=== PATIENT | male | born 1980 | race American Indian/Alaskan Native ===

== ENCOUNTER 2017-07-26 01:52 | Inpatient (IN) | payer SELFPAY ==
--- NOTE | 2017-07-26 05:54 | XRay Report ---
FINAL REPORT EXAM: XR ABDOMEN 2V HISTORY: N/V TECHNIQUE: upright and supine views of the abdomen and pelvis PRIORS: None. FINDINGS: No pneumoperitoneum. Bowel gas pattern is nonobstructive. No pathologic calcification or fracture. IMPRESSION: No acute finding. Consider CT for more sensitive and specific evaluation as warranted.
[2017-07-26 06:14] LABS: Basophils # (Auto) 0.1 K/mm3 (0.0-0.1); Basophils % (Auto) 0.6 % (0.0-1.8); Hematocrit 50.7 % (35.5-45.6); Hemoglobin 16.3 gm/dl (11.8-15.2); Lymphocytes # (Auto) 1.1 K/mm3 (1.2-5.4); Lymphocytes % (Auto) 11.7 % (13.4-35.0); Mean Corpuscular HGB Conc 32 % (32-34); Mean Corpuscular Hemoglobin 27 pg (28-32); Mean Corpuscular Volume 85 fl (84-94); Monocytes # (Auto) 0.7 K/mm3 (0.0-0.8); Monocytes % (Auto) 7.4 % (0.0-7.3); Platelet Count 266 K/mm3 (140-440); Red Blood Count 5.95 M/mm3 (3.65-5.03); Red Cell Distribution Width 14.6 % (13.2-15.2)
[2017-07-26 06:35] LABS: Albumin 4.9 g/dL (3.9-5); Calcium 10.4 mg/dL (8.4-10.2)
[2017-07-26] MEDS ORDERED: ZOFRAN IV ONE (07:12)
[2017-07-26] MEDS ORDERED: NACL 0.9% 1000 ML 1,000 ML IV ONE ×2 (07:12→07:28)
--- NOTE | 2017-07-26 07:22 | Emergency Department Report ---
Chief Complaint: Abdominal Pain Stated Complaint: N/V - HPI History of Present Illness: 37-year-old male past medical history hypertension, obesity presents with complaint of one week of generalized malaise intermittent nausea and vomiting and weight loss of nearly 30 pounds. Patient is awake alert and oriented fully lucid and cooperative. States he has some abdominal pain after retching. Denies chest pain or shortness of breath. Patient states that he feels nauseous and tired right now. Denies any previous history of diabetes himself but does have a family history of diabetes - ROS Review of Systems: 1 week of intermittent nausea and vomiting - Exam Vital Signs: Vital Signs 07/26/17 05:18 Temperature 97.5 F L Pulse Rate 128 H Blood Pressure 129/106 O2 Sat by Pulse 97 Oximetry Physical Exam: Heart S1-S2, lungs clear MSE screening note: Focused history and physical exam performed. Due to findings the following was ordered: Screening Assessment/Plan/Differential Dx: Hyperglycemia, new onset diabetes, DKA 1- This initial assessment/diagnostic orders/clinical plan/ treatment(s) is/are subject to change based on pt's health status, clinical progression and re- assessment by fellow clinical providers in the ED. Further treatment and workup at subsequent clinical provers discretion. Patient/guardians urged not to elope from ED as their condition may be serious if not clinically assessed and managed. 2-case discussed with Dr. Mays and patient uptriaged 3-IV fluid resuscitation, patient will require IV insulin as per my discussion with Dr. Masy 4-I informed patient of his hyperglycemia and necessity for acute treatment ED Medical Decision Making - Lab Data Result diagrams: 07/26/17 05:54 07/26/17 05:54 ED Disposition for MSE Condition: Stable Referrals: PRIMARY CARE, [Primary Care Provider] - 3-5 Days
[2017-07-26] MEDS ORDERED: D50W (25GM) Syringe IV PRN ×2 (07:28→11:58)
[2017-07-26] MEDS ORDERED: NovoLIN R 100 UNITS in NACL 0.9% 99 ML IV SCH (08:00)
--- NOTE | 2017-07-26 08:02 | Emergency Department Report ---
ED General Adult HPI - General Chief complaint: Abdominal Pain Stated complaint: N/V Source: patient Mode of arrival: Ambulatory Limitations: No Limitations - History of Present Illness Initial comments: 37 yo male with hx of HTN presents with one week of illness. He initially had flu-like symptoms. He then used apple cidar vinegar to detox. Since Monday of last week, he has lost 30 pounds. He has general malaise. Copious vomiting with nausea. +polyuria +polydipsia poor appetite. No hx of diabetes -: Gradual, week(s) (1) Severity scale (0 -10): 10 - Related Data Allergies Allergy/AdvReac Type Severity Reaction Status Date / Time No Known Allergies Allergy Unverified 07/26/17 05:18 ED Review of Systems ROS: Stated complaint: N/V Other details as noted in HPI Comment: All other systems reviewed and negative Constitutional: malaise ENT: denies: ear pain, throat pain Respiratory: cough Cardiovascular: denies: chest pain Endocrine: increased thirst, increased urine, unexplained weight loss ED Past Medical Hx - Past Medical History Previous Medical History?: Yes Hx Hypertension: Yes - Surgical History Past Surgical History?: No - Social History Smoking Status: Former Smoker Substance Use Type: None ED Physical Exam - General Limitations: No Limitations General appearance: alert, other (awake, appears ill, appears weak, no acute distress) - Head Head exam: Present: atraumatic, normocephalic - Eye Eye exam: Present: normal appearance, PERRL - ENT ENT exam: Present: mucous membranes dry (white coated tounge, no exudates normal tonsils) - Neck Neck exam: Present: normal inspection. Absent: tenderness, meningismus - Respiratory Respiratory exam: Present: normal lung sounds bilaterally. Absent: respiratory distress, wheezes, rales, rhonchi, accessory muscle use - Cardiovascular Cardiovascular Exam: Present: tachycardia, normal heart sounds. Absent: systolic murmur, diastolic murmur - GI/Abdominal GI/Abdominal exam: Present: soft. Absent: distended, tenderness, guarding, rebound, rigid - Extremities Exam Extremities exam: Present: normal inspection. Absent: tenderness - Neurological Exam Neurological exam: Present: alert, oriented X3 - Psychiatric Psychiatric exam: Present: normal affect, normal mood ED Course Vital Signs 07/26/17 05:18 Temperature 97.5 F L Pulse Rate 128 H Blood Pressure 129/106 O2 Sat by Pulse 97 Oximetry ED Medical Decision Making - Lab Data Result diagrams: 07/26/17 05:54 07/26/17 07:55 Laboratory Results - last 24 hr 07/26/17 07/26/17 07/26/17 05:54 05:54 05:54 WBC 9.2 RBC 5.95 H Hgb 16.3 H Hct 50.7 H MCV 85 MCH 27 L MCHC 32 RDW 14.6 Plt Count 266 Lymph % (Auto) 11.7 L [place] % (Auto) 7.4 H Eos % (Auto) 0.0 Baso % (Auto) 0.6 Lymph # 1.1 L [place] # 0.7 Eos # 0.0 Baso # 0.1 Seg Neutrophils % 80.3 H Seg Neutrophils # 7.4 Sodium 130 L Potassium 5.8 H Chloride 83.0 L Carbon Dioxide 13 L Anion Gap 40 BUN 26 H Creatinine 1.9 H Estimated GFR 49 BUN/Creatinine Ratio 14 Glucose 707 H* Calcium 10.4 H Phosphorus Magnesium Total Bilirubin 0.50 AST 10 ALT 17 Alkaline Phosphatase 99 Total Creatine Kinase 149 Total Protein 8.1 Albumin 4.9 Albumin/Globulin Ratio 1.5 Urine Color Urine Turbidity Urine pH Ur Specific [place] Urine Protein Urine Glucose (UA) Urine Ketones Urine Blood Urine Nitrite Urine Bilirubin Urine Urobilinogen Ur Leukocyte Esterase Urine WBC (Auto) Urine RBC (Auto) U Epithel Cells (Auto) Urine Mucus 07/26/17 07/26/17 07:12 07:55 WBC RBC Hgb Hct MCV MCH MCHC RDW Plt Count Lymph % (Auto) [place] % (Auto) Eos % (Auto) Baso % (Auto) Lymph # [place] # Eos # Baso # Seg Neutrophils % Seg Neutrophils # Sodium 135 L Potassium 6.2 H* Chloride 88.5 L Carbon Dioxide 11 L Anion Gap 42 BUN 28 H Creatinine 1.9 H Estimated GFR 49 BUN/Creatinine Ratio 15 Glucose 651 H* Calcium 10.2 Phosphorus 6.50 H Magnesium 2.80 H Total Bilirubin AST ALT Alkaline Phosphatase Total Creatine Kinase Total Protein Albumin Albumin/Globulin Ratio Urine Color Straw Urine Turbidity Clear Urine pH 5.0 Ur Specific [place] 1.027 Urine Protein 30 mg/dl Urine Glucose (UA) >=500 Urine Ketones 80 Urine Blood Sm Urine Nitrite Neg Urine Bilirubin Neg Urine Urobilinogen < 2.0 Ur Leukocyte Esterase Neg Urine WBC (Auto) 3.0 Urine RBC (Auto) 3.0 U Epithel Cells (Auto) < 1.0 Urine Mucus Few - Medical Decision Making Mr. Carty presents with new onset diabetes, DKA, MICHELLE. DKA protocol and IV hydration initiated in the ED. Dr. Peña hospitalist accepted admission. Dr. Thakkar will be the admitted hospitalist. Critical Care Time: Yes Critical care time in (mins) excluding proc time.: 35 Critical care attestation.: If time is entered above; I have spent that time in minutes in the direct care of this critically ill patient, excluding procedure time. ED Disposition Clinical Impression: DKA (diabetic ketoacidoses), MICHELLE (acute kidney injury) Disposition: [id number] OP ADMIT IP TO THIS HOSP Is pt being admited?: Yes Does the pt Need Aspirin: No Condition: Fair Instructions: Diabetic Ketoacidosis (ED) Referrals: PRIMARY CARE, [Primary Care Provider] - 3-5 Days
[2017-07-26 08:25] LABS: Calcium 10.2 mg/dL (8.4-10.2); Magnesium 2.8 mg/dL (1.7-2.3)
[2017-07-26 08:28] LABS: Bilirubin,Urine NEG (Negative); Blood,Urine SM (Negative); Color,Urine Straw (Yellow); Mucus,Urine FEW /HPF; Nitrite,Urine NEG (Negative); Urobilinogen,Urine < 2.0 mg/dL (<2.0)
[2017-07-26 09:52] LABS: BUN/Creatinine Ratio 17; Blood Urea Nitrogen 26 mg/dL (9-20); Calcium 9.4 mg/dL (8.4-10.2); Hemolysis Index 41
[2017-07-26 11:19] LABS: BUN/Creatinine Ratio 16; Blood Urea Nitrogen 23 mg/dL (9-20); Calcium 9.3 mg/dL (8.4-10.2); Hemolysis Index 5
[2017-07-26] MEDS ORDERED: ALUM-MAG HYDROX-SIMETH 200-200-20MG/5ML PO PRN (11:58)
[2017-07-26] MEDS ORDERED: DULCOLAX PR PRN (11:58)
[2017-07-26] MEDS ORDERED: MILK OF MAGNESIA PO PRN (11:58)
[2017-07-26] MEDS ORDERED: D5W/0.45% NACL/KCL 20 MEQ 20 MEQ/1,000 ML BAG IV SCH ×2 (12:00→12:30)
--- NOTE | 2017-07-26 12:03 | History and Physical Report ---
History of Present Illness Date of examination: 07/26/17 Date of admission: 07/26/17 Chief complaint: Polyuria and polydipsia History of present illness: This is a 37-year-old male with significant past medical history of hypertension who presented to the emergency department with complaints of polyuria and polydipsia for approximate 4 days. Patient states that he felt initially he had flulike symptoms. He also reports a 30 pound weight loss and general malaise. Patient also reports nausea with vomiting but no hematemesis. Patient denies any history of diabetes but reports family history with father and aunt. He denies any fever, chills. No cough or cold like symptoms. No headache or visual disturbances. Past History Past Medical History: hypertension Past Surgical History: No surgical history Social history: no significant social history Family history: no significant family history Medications and Allergies Allergies Allergy/AdvReac Type Severity Reaction Status Date / Time No Known Allergies Allergy Unverified 07/26/17 05:18 Home Medications Medication Instructions Recorded Confirmed Last Taken Type Acetaminophen/Chlorpheniramine 2 each PO Q4H 07/26/17 07/26/17 07/25/17 History [Coricidin Hbp Cold & Flu] Azithromycin [Zithromax] 250 mg PO QDAY 07/26/17 07/26/17 07/25/17 History Benzonatate [Tessalon Perle] 100 mg PO DAILY 07/26/17 07/26/17 07/25/17 History Naproxen [Naprosyn] 375 mg PO BID 07/26/17 07/26/17 07/25/17 History Active Meds: Active Medications Dextrose (D50w (25gm) Syringe) 0 ml IV ONCE PRN PRN Reason: Hypoglycemia Insulin Human Regular 100 (units/ Sodium Chloride) 100 mls @ 10 mls/hr IV TITR ROYA; 10 UNITS/HR PRN Reason: Protocol Last Titration: 07/26/17 11:42 Dose: 5 units/hr, 5 mls/hr Potassium Chloride/Dextrose/Sod Cl (D5w/0.45% Nacl/Kcl 20 Meq) 20 meq in 1,000 mls @ 125 mls/hr IV DIRECT ROYA Review of Systems All systems: negative Exam - Constitutional Vitals: Temp Pulse Resp BP Pulse Ox 98.5 F 125 H 20 131/93 100 07/26/17 08:58 07/26/17 10:52 07/26/17 10:52 07/26/17 10:52 07/26/17 10:52 General appearance: Present: no acute distress, well-nourished - EENT Eyes: Present: PERRL ENT: hearing intact, clear oral mucosa - Neck Neck: Present: supple, normal ROM - Respiratory Respiratory effort: normal Respiratory: bilateral: CTA - Cardiovascular Heart Sounds: Present: S1 & S2. Absent: rub, click - Extremities Extremities: pulses symmetrical, No edema Peripheral Pulses: within normal limits - Abdominal General gastrointestinal: Present: soft, non-tender, non-distended, normal bowel sounds Male genitourinary: Present: normal - Integumentary Integumentary: Present: clear, warm, dry - Musculoskeletal Musculoskeletal: gait normal, strength equal bilaterally - Psychiatric Psychiatric: appropriate mood/affect, intact judgment & insight - Neurologic Neurologic: CNII-XII intact, moves all extremities Results - Labs CBC & Chem 7: 07/26/17 05:54 07/26/17 10:45 Labs: Laboratory Last Values WBC 9.2 K/mm3 (4.5-11.0) 07/26/17 05:54 RBC 5.95 M/mm3 (3.65-5.03) H 07/26/17 05:54 Hgb 16.3 gm/dl (11.8-15.2) H 07/26/17 05:54 Hct 50.7 % (35.5-45.6) H 07/26/17 05:54 MCV 85 fl (84-94) 07/26/17 05:54 MCH 27 pg (28-32) L 07/26/17 05:54 MCHC 32 % (32-34) 07/26/17 05:54 RDW 14.6 % (13.2-15.2) 07/26/17 05:54 Plt Count 266 K/mm3 (140-440) 07/26/17 05:54 Lymph % (Auto) 11.7 % (13.4-35.0) L 07/26/17 05:54 [place] % (Auto) 7.4 % (0.0-7.3) H 07/26/17 05:54 Eos % (Auto) 0.0 % (0.0-4.3) 07/26/17 05:54 Baso % (Auto) 0.6 % (0.0-1.8) 07/26/17 05:54 Lymph # 1.1 K/mm3 (1.2-5.4) L 07/26/17 05:54 [place] # 0.7 K/mm3 (0.0-0.8) 07/26/17 05:54 Eos # 0.0 K/mm3 (0.0-0.4) 07/26/17 05:54 Baso # 0.1 K/mm3 (0.0-0.1) 07/26/17 05:54 Seg Neutrophils % 80.3 % (40.0-70.0) H 07/26/17 05:54 Seg Neutrophils # 7.4 K/mm3 (1.8-7.7) 07/26/17 05:54 POC ABG pH 7.201 (7.35-7.45) L 07/26/17 09:14 POC ABG pCO2 26.6 (35-45) L 07/26/17 09:14 POC ABG pO2 98 (80-105) 07/26/17 09:14 POC ABG HCO3 10.4 07/26/17 09:14 POC ABG Total CO2 11 07/26/17 09:14 POC ABG O2 Sat 96 07/26/17 09:14 POC ABG Base Excess -18 07/26/17 09:14 FiO2 21 % 07/26/17 09:14 Sodium 140 mmol/L (137-145) 07/26/17 10:45 Potassium 4.9 mmol/L (3.6-5.0) 07/26/17 10:45 Chloride 98.0 mmol/L (98-107) 07/26/17 10:45 Carbon Dioxide 13 mmol/L (22-30) L 07/26/17 10:45 Anion Gap 34 mmol/L 07/26/17 10:45 BUN 23 mg/dL (9-20) H 07/26/17 10:45 Creatinine 1.4 mg/dL (0.8-1.5) 07/26/17 10:45 Estimated GFR > 60 ml/min 07/26/17 10:45 BUN/Creatinine Ratio 16 % 07/26/17 10:45 Glucose 344 mg/dL (75-100) H 07/26/17 10:45 POC Glucose 272 (70-105) H 07/26/17 11:45 Calcium 9.3 mg/dL (8.4-10.2) 07/26/17 10:45 Phosphorus 6.50 mg/dL (2.5-4.5) H 07/26/17 07:55 Magnesium 2.80 mg/dL (1.7-2.3) H 07/26/17 07:55 Total Bilirubin 0.50 mg/dL (0.1-1.2) 07/26/17 05:54 AST 10 units/L (5-40) 07/26/17 05:54 ALT 17 units/L (7-56) 07/26/17 05:54 Alkaline Phosphatase 99 units/L (35-129) 07/26/17 05:54 Total Creatine Kinase 149 units/L (55-170) 07/26/17 05:54 Total Protein 8.1 g/dL (6.3-8.2) 07/26/17 05:54 Albumin 4.9 g/dL (3.9-5) 07/26/17 05:54 Albumin/Globulin Ratio 1.5 % 07/26/17 05:54 Urine Color Straw (Yellow) 07/26/17 07:12 Urine Turbidity Clear (Clear) 07/26/17 07:12 Urine pH 5.0 (5.0-7.0) 07/26/17 07:12 Ur Specific [place] 1.027 (1.003-1.030) 07/26/17 07:12 Urine Protein 30 mg/dl mg/dL (Negative) 07/26/17 07:12 Urine Glucose (UA) >=500 mg/dL (Negative) 07/26/17 07:12 Urine Ketones 80 mg/dL (Negative) 07/26/17 07:12 Urine Blood Sm (Negative) 07/26/17 07:12 Urine Nitrite Neg (Negative) 07/26/17 07:12 Urine Bilirubin Neg (Negative) 07/26/17 07:12 Urine Urobilinogen < 2.0 mg/dL (<2.0) 07/26/17 07:12 Ur Leukocyte Esterase Neg (Negative) 07/26/17 07:12 Urine WBC (Auto) 3.0 /HPF (0.0-6.0) 07/26/17 07:12 Urine RBC (Auto) 3.0 /HPF (0.0-6.0) 07/26/17 07:12 U Epithel Cells (Auto) < 1.0 /HPF (0-13.0) 07/26/17 07:12 Urine Mucus Few /HPF 07/26/17 07:12 Assessment and Plan Assessment and plan: DKA. Patient will be based on the DKA pathway. Continue IV fluid hydration and IV insulin drip. We will transition to long-acting insulin once the anion gap is closed and acidosis resolved. New-onset diabetes mellitus. Diet and diabetic education. Metabolic acidosis. Etiology secondary to #1. Acute renal failure. Etiology secondary to vasomotor nephropathy from dehydration/volume depletion. Check renal ultrasound.
--- NOTE | 2017-07-26 12:53 | Ultrasound Report ---
ULTRASOUND RENAL BILATERAL HISTORY: Acute renal failure. TECHNIQUE: transabdominal ultrasound with color Doppler interrogation. FINDINGS: The right kidney measures 11.0cm. Right renal cortex: 1.8cm. The left kidney measures 11.3cm. Left renal cortex: 2.1cm. Scans of the kidneys show normal renal contours. There is normal central calyceal clustering and good preservation of the cortical thickness. There is no evidence of mass or hydronephrosis. The views of the bladder and the region of the ureters appear normal. IMPRESSION: Unremarkable renal ultrasound.
[2017-07-26 13:26] LABS: BUN/Creatinine Ratio 17; Blood Urea Nitrogen 22 mg/dL (9-20); Calcium 9.3 mg/dL (8.4-10.2); Hemolysis Index 102; Magnesium 2.7 mg/dL (1.7-2.3)
[2017-07-26 14:14] LABS: BUN/Creatinine Ratio 18; Blood Urea Nitrogen 22 mg/dL (9-20); Calcium 9.4 mg/dL (8.4-10.2); Hemolysis Index 24
--- NOTE | 2017-07-26 15:56 | Consultation ---
History of Present Illness - Reason for Consult Consult date: 07/26/17 acute renal failure Requesting physician: ISMAEL SALEH - History of Present Illness This is a 37-year-old male with significant past medical history of hypertension who presented to the emergency department with complaints of polyuria and polydipsia for approximate 4 days. Patient states that he felt initially he had flulike symptoms. He also reports a 30 pound weight loss and general malaise. Patient also reports nausea with vomiting but no hematemesis. Patient denies any history of diabetes but reports family history with father and aunt. He denies any fever, chills. No cough or cold like symptoms. No headache or visual disturbances. Past History Past Medical History: hypertension Past Surgical History: No surgical history Social history: no significant social history Family history: no significant family history Review of Systems All systems: negative Past History Past Medical History: hypertension Past Surgical History: No surgical history Social history: no significant social history Family history: no significant family history Medications and Allergies Allergies Allergy/AdvReac Type Severity Reaction Status Date / Time No Known Allergies Allergy Unverified 07/26/17 05:18 Home Medications Medication Instructions Recorded Confirmed Last Taken Type Acetaminophen/Chlorpheniramine 2 each PO Q4H 07/26/17 07/26/17 07/25/17 History [Coricidin Hbp Cold & Flu] Azithromycin [Zithromax] 250 mg PO QDAY 07/26/17 07/26/17 07/25/17 History Benzonatate [Tessalon Perle] 100 mg PO DAILY 07/26/17 07/26/17 07/25/17 History Naproxen [Naprosyn] 375 mg PO BID 07/26/17 07/26/17 07/25/17 History Active Meds: Active Medications Al Hydrox/Mg Hydrox/Simethicone (Alum-Mag Hydrox-Simeth [phone]/5ml) 30 ml PO Q4H PRN PRN Reason: Indigestion Bisacodyl (Dulcolax) 10 mg [place] QDAY PRN PRN Reason: constipation unrelieved by MOM Dextrose (D50w (25gm) Syringe) 0 ml IV ONCE PRN PRN Reason: Hypoglycemia Dextrose (D50w (25gm) Syringe) 0 ml IV PRN PRN PRN Reason: Hypoglycemia Enoxaparin Sodium (Lovenox) 40 mg SUB-Q QDAY@1000 ROYA Potassium Chloride/Dextrose/Sod Cl (D5w/0.45% Nacl/Kcl 20 Meq) 20 meq in 1,000 mls @ 125 mls/hr IV DIRECT ROYA Last Admin: 07/26/17 15:02 Dose: 125 mls/hr Insulin Human Regular 100 (units/ Sodium Chloride) 100 mls @ 1 mls/hr IV TITR ROYA; 1 UNITS/HR PRN Reason: Protocol Magnesium Hydroxide (Milk Of Magnesia) 30 ml PO Q4H PRN PRN Reason: Constipation Review of Systems Genitourinary Male: polyuria Endocrine: excessive thirst, polydipsia, polyuria, weight change, fatigue Exam - Vital Signs Vital signs: Vital Signs Temp Pulse BP Pulse Ox 97.5 F L 128 H 129/106 97 07/26/17 05:18 07/26/17 05:18 07/26/17 05:18 07/26/17 05:18 - Physical Exam Narrative exam: General appearance: Present: no acute distress, well-nourished - EENT Eyes: Present: PERRL ENT: hearing intact, clear oral mucosa - Neck Neck: Present: supple, normal ROM - Respiratory Respiratory effort: normal Respiratory: bilateral: CTA - Cardiovascular Heart Sounds: Present: S1 & S2. Absent: rub, click - Extremities Extremities: pulses symmetrical, No edema Peripheral Pulses: within normal limits - Abdominal General gastrointestinal: Present: soft, non-tender, non-distended, normal bowel sounds Male genitourinary: Present: normal - Integumentary Integumentary: Present: clear, warm, dry - Musculoskeletal Musculoskeletal: gait normal, strength equal bilaterally - Psychiatric Psychiatric: appropriate mood/affect, intact judgment & insight - Neurologic Neurologic: CNII-XII intact, moves all extremities Results - Lab Results 07/26/17 05:54 07/26/17 13:33 Most recent lab results Calcium 9.4 mg/dL (8.4-10.2) 07/26/17 13:33 Phosphorus 3.20 mg/dL (2.5-4.5) D 07/26/17 12:58 Magnesium 2.70 mg/dL (1.7-2.3) H 07/26/17 12:58 Assessment and Plan Impression: * MICHELLE * intravascular volume depletion * New onset DM * HTN * metabolic acidosis * DKA * hyperkalemia Plan: * continue ivfs resuscitation * treat DM/DKA per primary team * strict i/os * daily lytes * cr is improving with hydration, likely volume depletion * k will improve with DM treatment * daily lytes * follow ua * will see prn
[2017-07-26 16:33] LABS: BUN/Creatinine Ratio 14; Blood Urea Nitrogen 20 mg/dL (9-20); Calcium 9.2 mg/dL (8.4-10.2); Hemolysis Index 35
[2017-07-26] MEDS: NovoLIN R 100 UNITS in NACL 0.9% 99 ML IV SCH (19:52)
[2017-07-26 20:32] LABS: BUN/Creatinine Ratio 14; Blood Urea Nitrogen 17 mg/dL (9-20); Calcium 9.1 mg/dL (8.4-10.2); Hemolysis Index 20
[2017-07-26] MEDS ORDERED: D5W/0.45% NACL/KCL 20 MEQ 20 MEQ/1,000 ML BAG IV ONE (23:02)
[2017-07-26 23:24] LABS: BUN/Creatinine Ratio 14; Blood Urea Nitrogen 15 mg/dL (9-20); Calcium 9.1 mg/dL (8.4-10.2); Hemolysis Index 34
[2017-07-27 05:19] LABS: Basophils # (Auto) 0.1 K/mm3 (0.0-0.1); Basophils % (Auto) 1.2 % (0.0-1.8); Eosinophils # (Auto) 0.2 K/mm3 (0.0-0.4); Hematocrit 42.9 % (35.5-45.6); Lymphocytes # (Auto) 2.8 K/mm3 (1.2-5.4); Lymphocytes % (Auto) 28.2 % (13.4-35.0); Mean Corpuscular HGB Conc 33 % (32-34); Mean Corpuscular Hemoglobin 27 pg (28-32); Mean Corpuscular Volume 84 fl (84-94); Monocytes # (Auto) 1.2 K/mm3 (0.0-0.8); Monocytes % (Auto) 12.3 % (0.0-7.3); Red Blood Count 5.14 M/mm3 (3.65-5.03); Red Cell Distribution Width 14.5 % (13.2-15.2)
[2017-07-27 05:26] LABS: Platelet Count 185 K/mm3 (140-440)
[2017-07-27 05:48] LABS: BUN/Creatinine Ratio 11; Blood Urea Nitrogen 12 mg/dL (9-20); Calcium 8.7 mg/dL (8.4-10.2); Hemolysis Index 6
[2017-07-27 08:32] LABS: BUN/Creatinine Ratio 11; Blood Urea Nitrogen 12 mg/dL (9-20); Calcium 8.6 mg/dL (8.4-10.2); Hemolysis Index 3
[2017-07-27] MEDS ORDERED: ZOFRAN ONE (09:17)
--- NOTE | 2017-07-27 09:38 | Progress Note ---
Assessment and Plan Impression: * MICHELLE * intravascular volume depletion * New onset DM * HTN * metabolic acidosis * DKA * hyperkalemia Plan: * continue ivfs resuscitation * treat DM/DKA per primary team * strict i/os * daily lytes * cr is improving with hydration, likely volume depletion * k will improve with DM treatment * daily lytes * follow ua * will see prn--call if needed again Subjective Date of service: 07/27/17 Principal diagnosis: michelle Interval history: resting in bed Objective - Exam Narrative Exam: General appearance: Present: no acute distress, well-nourished - EENT Eyes: Present: PERRL ENT: hearing intact, clear oral mucosa - Neck Neck: Present: supple, normal ROM - Respiratory Respiratory effort: normal Respiratory: bilateral: CTA - Cardiovascular Heart Sounds: Present: S1 & S2. Absent: rub, click - Extremities Extremities: pulses symmetrical, No edema Peripheral Pulses: within normal limits - Abdominal General gastrointestinal: Present: soft, non-tender, non-distended, normal bowel sounds Male genitourinary: Present: normal - Integumentary Integumentary: Present: clear, warm, dry - Musculoskeletal Musculoskeletal: gait normal, strength equal bilaterally - Psychiatric Psychiatric: appropriate mood/affect, intact judgment & insight - Neurologic Neurologic: CNII-XII intact, moves all extremities - Vital Signs Vital signs: Vital Signs - 12hr 07/26/17 07/26/17 07/26/17 21:45 22:00 22:15 Pulse Rate 105 H 108 H 107 H Respiratory 26 H 15 13 Rate Blood Pressure 124/75 129/82 129/82 Blood Pressure [Left] O2 Sat by Pulse 93 97 99 Oximetry 07/26/17 07/26/17 07/26/17 22:31 22:45 22:56 Pulse Rate 105 H 104 H 113 H Respiratory 17 13 12 Rate Blood Pressure 129/82 124/75 129/82 Blood Pressure [Left] O2 Sat by Pulse 100 99 100 Oximetry 07/26/17 07/26/17 07/26/17 23:00 23:15 23:16 Pulse Rate 105 H 103 H 104 H Respiratory 15 9 L 18 Rate Blood Pressure 129/82 129/82 Blood Pressure 115/84 [Left] O2 Sat by Pulse 97 98 Oximetry 07/26/17 07/26/17 07/27/17 23:31 23:45 00:00 Pulse Rate 102 H 106 H 103 H Respiratory 23 29 H 17 Rate Blood Pressure 129/82 115/81 128/86 Blood Pressure [Left] O2 Sat by Pulse 96 92 97 Oximetry 07/27/17 07/27/17 07/27/17 00:15 00:31 00:45 Pulse Rate 103 H 107 H 107 H Respiratory 26 H 14 20 Rate Blood Pressure 128/86 128/86 128/86 Blood Pressure [Left] O2 Sat by Pulse 93 85 98 Oximetry 07/27/17 07/27/17 07/27/17 01:00 01:15 01:31 Pulse Rate 106 H 99 H 100 H Respiratory 15 13 16 Rate Blood Pressure 134/83 134/83 134/83 Blood Pressure [Left] O2 Sat by Pulse 99 100 99 Oximetry 07/27/17 07/27/17 07/27/17 01:45 02:00 02:15 Pulse Rate 106 H 96 H 102 H Respiratory 20 20 13 Rate Blood Pressure 134/83 138/96 134/83 Blood Pressure [Left] O2 Sat by Pulse 99 97 98 Oximetry 07/27/17 07/27/17 07/27/17 02:31 02:45 03:00 Pulse Rate 109 H 108 H 109 H Respiratory 17 24 26 H Rate Blood Pressure 134/83 134/83 129/93 Blood Pressure [Left] O2 Sat by Pulse 97 92 92 Oximetry 07/27/17 07/27/17 07/27/17 03:15 03:31 03:45 Pulse Rate 106 H 96 H 101 H Respiratory 26 H 20 22 Rate Blood Pressure 129/93 129/93 129/93 Blood Pressure [Left] O2 Sat by Pulse 92 97 99 Oximetry 07/27/17 07/27/17 07/27/17 04:01 04:15 04:31 Pulse Rate 103 H 111 H 104 H Respiratory 25 H 22 26 H Rate Blood Pressure 134/87 129/93 129/93 Blood Pressure [Left] O2 Sat by Pulse 94 94 97 Oximetry 07/27/17 07/27/17 07/27/17 04:45 05:00 05:15 Pulse Rate 103 H 106 H 106 H Respiratory 25 H 21 18 Rate Blood Pressure 129/93 129/81 129/81 Blood Pressure [Left] O2 Sat by Pulse 96 97 99 Oximetry 07/27/17 07/27/17 07/27/17 05:31 05:45 06:00 Pulse Rate 102 H 97 H 102 H Respiratory 18 21 18 Rate Blood Pressure 129/81 129/81 121/68 Blood Pressure [Left] O2 Sat by Pulse 98 97 97 Oximetry 07/27/17 07/27/17 07/27/17 06:15 06:31 06:45 Pulse Rate 105 H 107 H 105 H Respiratory 22 16 17 Rate Blood Pressure 121/68 129/81 129/81 Blood Pressure [Left] O2 Sat by Pulse 95 96 98 Oximetry 07/27/17 07/27/17 07/27/17 07:00 07:15 07:31 Pulse Rate 101 H 102 H 103 H Respiratory 20 19 17 Rate Blood Pressure 118/63 118/63 118/63 Blood Pressure [Left] O2 Sat by Pulse 100 97 98 Oximetry 07/27/17 07:45 Pulse Rate 100 H Respiratory 13 Rate Blood Pressure 118/63 Blood Pressure [Left] O2 Sat by Pulse 97 Oximetry - Lab 07/27/17 04:53 07/27/17 07:56 Most recent lab results Calcium 8.6 mg/dL (8.4-10.2) 07/27/17 07:56 Phosphorus 3.20 mg/dL (2.5-4.5) D 07/26/17 12:58 Magnesium 2.70 mg/dL (1.7-2.3) H 07/26/17 12:58
[2017-07-27] MEDS ORDERED: LOVENOX SUB-Q SCH (10:00)
--- NOTE | 2017-07-27 10:10 | Event Note ---
Date: 07/27/17
[2017-07-27] MEDS: NovoLIN R 100 UNITS in NACL 0.9% 99 ML IV SCH (10:15)
[2017-07-27] MEDS ORDERED: LOVENOX SUB-Q ONE (10:25)
[2017-07-27] MEDS ORDERED: D5W/0.45% NACL/KCL 20 MEQ 20 MEQ/1,000 ML BAG IV ONE (10:26)
[2017-07-27] MEDS: LOVENOX SUB-Q SCH (10:58)
[2017-07-27] MEDS ORDERED: D50W (25GM) Syringe IV PRN (11:12)
--- NOTE | 2017-07-27 11:18 | Progress Note ---
Assessment and Plan Assessment and plan: DKA. Resolved. Patient will be started on long-acting insulin of 70/30 15 units twice a day. Follow-up hemoglobin A1c. New-onset diabetes mellitus. Diet and diabetic education. As above Metabolic acidosis. Etiology secondary to #1. Acute renal failure. Resolved. Etiology secondary to vasomotor nephropathy from dehydration/volume depletion. Check renal ultrasound. Continue IV fluid hydration History Interval history: No new issues overnight. Hospitalist Physical - Constitutional Vitals: Temp Pulse Resp BP Pulse Ox 98.5 F 100 H 13 118/63 97 07/26/17 08:58 07/27/17 07:45 07/27/17 07:45 07/27/17 07:45 07/27/17 07:45 General appearance: Present: no acute distress, well-nourished - EENT Eyes: Present: PERRL, EOM intact ENT: hearing intact, clear oral mucosa, dentition normal - Neck Neck: Present: supple, normal ROM - Respiratory Respiratory effort: normal Respiratory: bilateral: CTA - Cardiovascular Rhythm: regular Heart Sounds: Present: S1 & S2. Absent: gallop, rub - Extremities Extremities: no ischemia, No edema, Full ROM - Abdominal General gastrointestinal: soft, non-tender, non-distended, normal bowel sounds - Integumentary Integumentary: Present: clear, warm, dry - Neurologic Neurologic: CNII-XII intact, moves all extremities Results - Labs CBC & Chem 7: 07/27/17 04:53 07/27/17 07:56 Labs: Laboratory Last Values WBC 10.1 K/mm3 (4.5-11.0) 07/27/17 04:53 RBC 5.14 M/mm3 (3.65-5.03) H 07/27/17 04:53 Hgb 14.0 gm/dl (11.8-15.2) 07/27/17 04:53 Hct 42.9 % (35.5-45.6) D 07/27/17 04:53 MCV 84 fl (84-94) 07/27/17 04:53 MCH 27 pg (28-32) L 07/27/17 04:53 MCHC 33 % (32-34) 07/27/17 04:53 RDW 14.5 % (13.2-15.2) 07/27/17 04:53 Plt Count 185 K/mm3 (140-440) 07/27/17 04:53 Lymph % (Auto) 28.2 % (13.4-35.0) 07/27/17 04:53 Rush % (Auto) 12.3 % (0.0-7.3) H 07/27/17 04:53 Eos % (Auto) 2.0 % (0.0-4.3) 07/27/17 04:53 Baso % (Auto) 1.2 % (0.0-1.8) 07/27/17 04:53 Lymph # 2.8 K/mm3 (1.2-5.4) 07/27/17 04:53 Rush # 1.2 K/mm3 (0.0-0.8) H 07/27/17 04:53 Eos # 0.2 K/mm3 (0.0-0.4) 07/27/17 04:53 Baso # 0.1 K/mm3 (0.0-0.1) 07/27/17 04:53 Seg Neutrophils % 56.3 % (40.0-70.0) 07/27/17 04:53 Seg Neutrophils # 5.7 K/mm3 (1.8-7.7) 07/27/17 04:53 POC ABG pH 7.201 (7.35-7.45) L 07/26/17 09:14 POC ABG pCO2 26.6 (35-45) L 07/26/17 09:14 POC ABG pO2 98 (80-105) 07/26/17 09:14 POC ABG HCO3 10.4 07/26/17 09:14 POC ABG Total CO2 11 07/26/17 09:14 POC ABG O2 Sat 96 07/26/17 09:14 POC ABG Base Excess -18 07/26/17 09:14 FiO2 21 % 07/26/17 09:14 Sodium 136 mmol/L (137-145) L 07/27/17 07:56 Potassium 3.8 mmol/L (3.6-5.0) 07/27/17 07:56 Chloride 98.7 mmol/L (98-107) 07/27/17 07:56 Carbon Dioxide 22 mmol/L (22-30) 07/27/17 07:56 Anion Gap 19 mmol/L 07/27/17 07:56 BUN 12 mg/dL (9-20) 07/27/17 07:56 Creatinine 1.1 mg/dL (0.8-1.5) 07/27/17 07:56 Estimated GFR > 60 ml/min 07/27/17 07:56 BUN/Creatinine Ratio 11 % 07/27/17 07:56 Glucose 174 mg/dL (75-100) H 07/27/17 07:56 POC Glucose 187 (70-105) H 07/27/17 09:09 Calcium 8.6 mg/dL (8.4-10.2) 07/27/17 07:56 Phosphorus 3.20 mg/dL (2.5-4.5) D 07/26/17 12:58 Magnesium 2.70 mg/dL (1.7-2.3) H 07/26/17 12:58 Total Bilirubin 0.50 mg/dL (0.1-1.2) 07/26/17 05:54 AST 10 units/L (5-40) 07/26/17 05:54 ALT 17 units/L (7-56) 07/26/17 05:54 Alkaline Phosphatase 99 units/L (35-129) 07/26/17 05:54 Total Creatine Kinase 149 units/L (55-170) 07/26/17 05:54 Total Protein 8.1 g/dL (6.3-8.2) 07/26/17 05:54 Albumin 4.9 g/dL (3.9-5) 07/26/17 05:54 Albumin/Globulin Ratio 1.5 % 07/26/17 05:54 Urine Color Straw (Yellow) 07/26/17 07:12 Urine Turbidity Clear (Clear) 07/26/17 07:12 Urine pH 5.0 (5.0-7.0) 07/26/17 07:12 Ur Specific [place] 1.027 (1.003-1.030) 07/26/17 07:12 Urine Protein 30 mg/dl mg/dL (Negative) 07/26/17 07:12 Urine Glucose (UA) >=500 mg/dL (Negative) 07/26/17 07:12 Urine Ketones 80 mg/dL (Negative) 07/26/17 07:12 Urine Blood Sm (Negative) 07/26/17 07:12 Urine Nitrite Neg (Negative) 07/26/17 07:12 Urine Bilirubin Neg (Negative) 07/26/17 07:12 Urine Urobilinogen < 2.0 mg/dL (<2.0) 07/26/17 07:12 Ur Leukocyte Esterase Neg (Negative) 07/26/17 07:12 Urine WBC (Auto) 3.0 /HPF (0.0-6.0) 07/26/17 07:12 Urine RBC (Auto) 3.0 /HPF (0.0-6.0) 07/26/17 07:12 U Epithel Cells (Auto) < 1.0 /HPF (0-13.0) 07/26/17 07:12 Urine Mucus Few /HPF 07/26/17 07:12
[2017-07-27] MEDS: NACL 0.9% 1000 ML 1,000 ML IV SCH (12:26)
[2017-07-28] MEDS: NACL 0.9% 1000 ML 1,000 ML IV SCH (05:59)
[2017-07-28 06:39] LABS: Basophils # (Auto) 0.1 K/mm3 (0.0-0.1); Basophils % (Auto) 1.3 % (0.0-1.8); Eosinophils # (Auto) 0.2 K/mm3 (0.0-0.4); Eosinophils % (Auto) 2.7 % (0.0-4.3); Lymphocytes # (Auto) 2.5 K/mm3 (1.2-5.4); Lymphocytes % (Auto) 33.8 % (13.4-35.0); Mean Corpuscular HGB Conc 32 % (32-34); Mean Corpuscular Hemoglobin 27 pg (28-32); Mean Corpuscular Volume 84 fl (84-94); Monocytes # (Auto) 0.8 K/mm3 (0.0-0.8); Monocytes % (Auto) 10.7 % (0.0-7.3); Red Blood Count 4.74 M/mm3 (3.65-5.03); Red Cell Distribution Width 14.1 % (13.2-15.2)
[2017-07-28 06:50] LABS: Platelet Count 147 K/mm3 (140-440)
[2017-07-28 06:53] LABS: BUN/Creatinine Ratio 10; Blood Urea Nitrogen 9 mg/dL (9-20); Calcium 8.6 mg/dL (8.4-10.2); Hemolysis Index 1
--- NOTE | 2017-07-28 08:08 | Discharge Summary ---
Providers - Providers Date of Admission: 07/26/17 11:58 Date of discharge: 07/28/17 Attending physician: ISMAEL SALEH 07/26/17 11:58 Consult to Dietitian/Nutrition [CONS] Routine Physician Instructions: Reason For Exam: Reason for Consult: Diet education 07/26/17 12:00 Consult to Physician [CONS] Routine Consulting Provider: YANIQUE BRIDGES Reason For Exam: ARF Place consult to:: NEPHROLOGY Notified:: Y If yes, spoke with:: CHRISTY DE OLIVEIRA Time called:: 12:30 07/26/17 14:24 Consult to Physician [CONS] Routine Consulting Provider: AURORA KERR Reason For Exam: critical care Place consult to:: CC [employer] DATA ASSOCIATE Notified:: Y If yes, spoke with:: DR VALLADARES Time called:: 12:00 Comment:: SPOKE W IN ER Primary care physician: SPREAD CUTTER Hospitalization Reason for admission: dka Condition: Fair Hospital course: This is a 37-year-old male with significant past medical history of hypertension who presented to the emergency department with complaints of polyuria and polydipsia for approximate 4 days. Patient stated that he felt initially he had flulike symptoms. He also reported a 30 pound weight loss and general malaise. Patient also reportsed nausea with vomiting but no hematemesis. Patient denies any history of diabetes but reports family history with father and aunt. The patient was admitted with dx new onset DM and DKA. PT. was treated with IVF and IV insulin. Later, he was trnsitioned to long acting 70/30 and received DM education. Dedicated discharge time 32 min. Disposition: - TO HOME OR SELFCARE Time spent for discharge: 32 - Discharge Diagnoses (1) MICHELLE (acute kidney injury) Status: Acute (2) DKA (diabetic ketoacidoses) Status: Acute Core Measure Documentation - Palliative Care Palliative Care/ Comfort Measures: Not Applicable - Core Measures Any of the following diagnoses?: none Exam - Constitutional Vitals: Temp Pulse Resp BP Pulse Ox 98.2 F 103 H 17 136/88 98 07/27/17 23:06 07/27/17 23:06 07/27/17 23:06 07/27/17 23:06 07/27/17 23:06 General appearance: Present: no acute distress, well-nourished - EENT Eyes: Present: PERRL ENT: hearing intact, clear oral mucosa - Neck Neck: Present: supple, normal ROM - Respiratory Respiratory effort: normal Respiratory: bilateral: CTA - Cardiovascular Heart Sounds: Present: S1 & S2. Absent: rub, click - Extremities Extremities: pulses symmetrical, No edema Peripheral Pulses: within normal limits - Abdominal General gastrointestinal: Present: soft, non-tender, non-distended, normal bowel sounds Male genitourinary: Present: normal - Integumentary Integumentary: Present: clear, warm, dry - Musculoskeletal Musculoskeletal: gait normal, strength equal bilaterally - Psychiatric Psychiatric: appropriate mood/affect, intact judgment & insight - Neurologic Neurologic: CNII-XII intact, moves all extremities Plan Activity: no restrictions Weight Bearing Status: Full Weight Bearing Diet: diabetic Follow up with: PRIMARY CARE, [Primary Care Provider] - 3-5 Days AIDAN RIVERA MD [Staff Physician] - 7 Days Prescriptions: Insulin NPH/Regular [NovoLIN 70/30] 20 unit SUB-Q BIDDIAB #30 units Insulin Regular, Human [HumuLIN R] 0 units SUB-Q ACHS #30 units
[2017-07-28 08:11] VITALS: BP 119/68
[2017-07-28] MEDS: LOVENOX SUB-Q SCH (09:06)
== END 2017-07-28 15:30 | disposition home or self-care (01) | DRG 638 ==
LOC: ED 01:52 → CC1 11:58 → 3A 07-27 13:00
PROVIDERS: ADMIT Hospitalist; ATTEND Hospitalist
PROC: 4A033R1 Measurement of Arterial Saturation, Peripheral, Percutaneous Approach (ICD-10-PCS; principal; 2017-07-26)
DX: E13.10 Other specified diabetes mellitus with ketoacidosis without coma (principal); N17.9 Acute kidney failure, unspecified; I10 Essential (primary) hypertension; E66.9 Obesity, unspecified; Z68.32 Body mass index [BMI] 32.0-32.9, adult; Z87.891 Personal history of nicotine dependence; E87.5 Hyperkalemia
CPT/HCPCS: 36415; 74019; 76770; 80048; 80053; 81001; 82550; 82803; 82962; 83036; 83735; 84100; 85025; 93005; 93010; 99291; J1650; J1815; J2405; J7030